=== PATIENT | female | born 1995 | race American Indian/Alaskan Native ===

== ENCOUNTER 2018-11-13 10:59 | Outpatient (CLI) | payer MEDICAID ==
[2018-11-13] MEDS ORDERED: LACTATED RINGERS 500 ML IV ONE (11:32)
[2018-11-13 12:23] LABS: Bacteria,Urine 1+ /HPF (Negative); Bilirubin,Urine NEG (Negative); Blood,Urine NEG (Negative); Color,Urine Yellow (Yellow); Mucus,Urine 1+ /HPF; Protein,Urine <15 mg/dL mg/dL (Negative); Urobilinogen,Urine < 2.0 mg/dL (<2.0)
[2018-11-13 13:37] VITALS: BP 125/76
[2018-11-13] MEDS ORDERED: LACTATED RINGERS 1,000 ML ONE (14:32)
== END 2018-11-13 16:53 | disposition home or self-care (01) ==
LOC: TRG 10:59 → LD 11:02 → TRG 12:47
PROVIDERS: ATTEND Obstetrics & Gynecology
DX: O26.892 Other specified pregnancy related conditions, second trimester (principal); R10.30 Lower abdominal pain, unspecified; O47.02 False labor before 37 completed weeks of gestation, second trimester; Z3A.25 25 weeks gestation of pregnancy
CPT/HCPCS: 81001; J7120

== ENCOUNTER 2019-02-05 22:53 | Inpatient (IN) | payer MEDICAID ==
[2019-02-05 23:41] LABS: Bacteria,Urine 1+ /HPF (Negative); Bilirubin,Urine NEG (Negative); Blood,Urine SM (Negative); Mucus,Urine FEW /HPF
[2019-02-05 23:44] LABS: Color,Urine YELLOW (Yellow)
[2019-02-06 00:08] LABS: Basophils % (Auto) 0.2 % (0.0-1.8); Eosinophils # (Auto) 0.4 K/mm3 (0.0-0.4); Eosinophils % (Auto) 2.8 % (0.0-4.3); Hematocrit 31.4 % (30.3-42.9); Hemoglobin 10.5 gm/dl (10.1-14.3); Lymphocytes # (Auto) 1.7 K/mm3 (1.2-5.4); Mean Corpuscular HGB Conc 34 % (30-34); Mean Corpuscular Volume 74 fl (79-97); Monocytes # (Auto) 1.2 K/mm3 (0.0-0.8); Monocytes % (Auto) 9.4 % (0.0-7.3); Red Blood Count 4.24 M/mm3 (3.65-5.03); Red Cell Distribution Width 17.3 % (13.2-15.2)
[2019-02-06 00:13] LABS: Platelet Count 92 K/mm3 (140-440)
[2019-02-06 00:34] LABS: BUN/Creatinine Ratio 18; Blood Urea Nitrogen 9 mg/dL (7-17)
[2019-02-06 00:35] LABS: Alanine Aminotransferase 45 units/L (7-56); Albumin 3.2 g/dL (3.9-5); Hemolysis Index 11
[2019-02-06] MEDS ORDERED: MAGNESIUM SULFATE 4GM/100ML 4 GM/100 ML BAG IV ONE (00:38)
[2019-02-06] MEDS ORDERED: APRESOLINE IV ONE (00:40)
--- NOTE | 2019-02-06 01:30 | Ultrasound Report ---
US OB limited INDICATION / CLINICAL INFORMATION: PRESENTATION. COMPARISON: 11/02/2018. FINDINGS: There is a single intrauterine in a cephalic presentation. Signer Name: Arden Brunner MD Signed: 02/06/2019 1:25 AM Workstation Name: [id number]
[2019-02-06] MEDS: LACTATED RINGERS 1,000 ML IV SCH ×2 (01:33→13:37)
[2019-02-06] MEDS: MAGNESIUM SULFATE 40GM/1000ML 40 GM/1,000 ML BAG IV SCH ×3 (02:28→19:15)
[2019-02-06] MEDS: SUBLIMAZE IV PRN ×2 (02:41→05:35)
[2019-02-06] MEDS ORDERED: CERVIDIL VG ONE (03:08)
[2019-02-06] MEDS ORDERED: NORMODYNE IV ONE (03:08)
[2019-02-06] MEDS ORDERED: APRESOLINE IV STA (05:19)
--- NOTE | 2019-02-06 05:37 | History and Physical Report ---
<MECHELLE MURILLO - Last Filed: 02/06/19 06:16> History of Present Illness Date of examination: 02/06/19 Date of admission: 02/06/19 00:56 History of present illness: EDC Confirmation: 02/23/2019 Gestational Age: 7 3/7 weeks Past History : 1 Term Births: 0 Premature Births: 0 Living Children: 0 Para: 0 Mult. Births: 0 Prev : 0 Prev. attempt? 0 Aborta: 0 Elect. Ab: 0 Spont. Ab: 0 Ectopics: 0 Past Medical History: Asthma Past Surgical History: [place] teeth removed Past Medical History Surgery (Non-nurse obgyn): [place] teeth removed Abnormal PAP: negative EKATERINA Exposure: negative Infertility: negative Uterine Anomaly: negative Uterine Surgery (not C/S): negative Other Gynecologic Problems: negative Infection History Hx of STD: gonorrhea HIV Risk Eval: low risk Hepatitis B Risk Eval: low risk Personal hx. of genital herpes: no Partner hx. of genital herpes: no Rash, Viral, or Febrile illness since last LMP? no Varicella/Chicken Pox Status: Previous Disease TB Risk: no Current Allergies (reviewed today): * IODINE (Critical) Past History - Obstetrical History Expected Date of Delivery: 02/23/19 Actual Gestation: 37 Week(s) 4 Day(s) : 1 Para: 0 Hx # Term Pregnancies: 0 Number of Pregnancies: 0 Spontaneous Abortions: 0 Induced : 0 Number of Living Children: 0 Medications and Allergies Allergies Allergy/AdvReac Type Severity Reaction Status Date / Time iodine Allergy Severe Anaphylaxis Verified 11/13/18 11:29 Active Meds: Active Medications Fentanyl (Sublimaze) 100 mcg IV Q2HR PRN PRN Reason: Pain , Severe (7-10) Last Admin: 02/06/19 02:41 Dose: 100 mcg Documented by: Magnesium Sulfate (Magnesium Sulfate 40gm/1000ml) 40 gm in 1,000 mls @ 50 mls/hr IV DIRECT DANAE Last Admin: 02/06/19 02:28 Dose: 2 gm/hr, 50 mls/hr Documented by: Lactated Ringer's (Lactated Ringers) 1,000 mls @ 75 mls/hr IV DIRECT DANAE Last Admin: 02/06/19 01:33 Dose: 75 mls/hr Documented by: Labetalol HCl (Normodyne) 200 mg PO BID DANAE - Vital Signs Vital signs: Vital Signs Pulse BP 88 185/104 02/05/19 23:13 02/05/19 23:13 Temp Pulse Resp BP Pulse Ox 99 H 183/96 100 02/06/19 05:31 02/06/19 05:31 02/06/19 05:29 - Physical Exam Breasts: Positive: deferred Cardiovascular: Normal S1, Normal S2, Other (tachycardia Pulse >100 ) Abdomen: Positive: normal appearance, soft, normal bowel sounds. Negative: distention, tenderness Vulva: both: normal Vagina: Positive: normal moisture. Negative: discharge Cervix: Negative: lesion, discharge Uterus: Positive: normal size, normal contour Adnexa: both: normal Anus/Rectum: Positive: normal perianal skin, heme negative. Negative: rectal mass, hemorrhoids Extremities: Positive: edema Deep Tendon Reflex Grade: Normal but brisk +3 - Obstetrical FHR: category 1 Uterine Contraction Monitor Mode: External Cervical Dilatation: 0 Cervical Effacement Percentage: 50 station: -2 Uterine Contraction Pattern: Irregular Uterine Tone Measurement Phase: Resting Uterine Contraction Intensity: Moderate Results Result Diagrams: 02/05/19 23:47 02/05/19 23:47 Abnormal lab results 02/05/19 02/05/19 Range/Units 23:47 23:47 WBC 12.5 H (4.5-11.0) K/mm3 MCV 74 L (79-97) fl MCH 25 L (28-32) pg RDW 17.3 H (13.2-15.2) % Plt Count 92 L (140-440) K/mm3 Adams % (Auto) 9.4 H (0.0-7.3) % Adams # 1.2 H (0.0-0.8) K/mm3 Seg Neutrophils % 73.6 H (40.0-70.0) % Seg Neutrophils # 9.2 H (1.8-7.7) K/mm3 Carbon Dioxide 19 L (22-30) mmol/L Creatinine 0.5 L (0.7-1.2) mg/dL AST 59 H (5-40) units/L Alkaline Phosphatase 160 H (35-129) units/L Albumin 3.2 L (3.9-5) g/dL All other labs normal. GBS Negative HBsAg Screen Negative Negative *1 RPR Non Reactive Non Reactive *2 Rubella Antibodies, IgG 3.77 index Immune >0.99 *3 Non-immune <0.90 Equivocal 0.90 - 0.99 Immune >0.99 ABO Grouping AB *4 Rh Factor Positive *5 Please note: Prior records for this patient's ABO / Rh type are not available for additional verification. Antibody Screen Negative Negative *6 WBC 10.2 x10E3/uL 3.4-10.8 *7 RBC 5.05 x10E6/uL 3.77-5.28 *8 Hemoglobin 12.5 g/dL 11.1-15.9 *9 Hematocrit 37.9 % 34.0-46.6 *10 MCV [L] 75 fL 79-97 *11 MCH [L] 24.8 pg 26.6-33.0 *12 MCHC 33.0 g/dL 31.5-35.7 *13 RDW [H] 16.0 % 12.3-15.4 *14 Platelets 251 x10E3/uL 150-379 *15 Neutrophils 70 % Not Estab. *16 Lymphs 22 % Not Estab. *17 Monocytes 5 % Not Estab. *18 Eos 3 % Not Estab. *19 Basos 0 % Not Estab. *20 ! Immature Cells <No Reported Value> *21 Neutrophils (Absolute) [H] 7.1 x10E3/uL 1.4-7.0 *22 Lymphs (Absolute) 2.2 x10E3/uL 0.7-3.1 *23 Monocytes(Absolute) 0.5 x10E3/uL 0.1-0.9 *24 Eos (Absolute) 0.3 x10E3/uL 0.0-0.4 *25 Baso (Absolute) 0.0 x10E3/uL 0.0-0.2 *26 ! Immature Granulocytes 0 % Not Estab. *27 ! Immature Grans (Abs) 0.0 x10E3/uL 0.0-0.1 *28 ! NRBC <No Reported Value> *29 Hematology Comments: <No Reported Value> *30 Tests: (2) Panel [id number] ([id number]) HIV Screen 4th Generation wRfx Non Reactive Non Reactive *31 Tests: (3) HCV Ab w/Rflx to Verification (319684) ! HCV Ab <0.1 s/co ratio 0.0-0.9 *32 Tests: (4) Comment: ([id number]) ! Comment: SPRCS *33 Non reactive HCV antibody screen is consistent with no HCV infection, unless recent infection is suspected or other evidence exists to indicate HCV infection. Tests: (5) Urine Culture, Routine ([id number]) Urine Culture, Routine Final report *34 Tests: (6) Result ([id number]) ! Result 1 MUG *35 Mixed urogenital lewis 25,000-50,000 colony forming units per mL Assessment and Plan 23yo @ 37 weeks with severe PreE Presented with back pain. MGSO4 IOL with Cervidil Pt is GBS negative All orders in EMR. Dr Ellison consulted - Patient Problems (1) 37 weeks gestation of Onset Date: ~02/06/19 Current Visit: Yes Status: Acute Plan to address problem: Pt has had intermittent elevated BPs in w/o dx of hypertension, PreE Today she presents with severe back pain, ANGEL, and exacerbation of asthma sx Now dx with severe PreE will move forward with IOL Cervidil to be placed Dr. Ellison consulted (2) Asthma Onset Date: ~02/06/19 Current Visit: Yes Status: Acute Qualifiers: Asthma severity: unspecified severity Asthma persistence: intermittent Qualified Code(s): J45.21 - Mild intermittent asthma with (acute) exacerbation Plan to address problem: Pt has her beside inhaler Breathing treatment ordered from respiratory (3) BMI 40.0-44.9, adult Onset Date: ~02/06/19 Current Visit: Yes Status: Acute Plan to address problem: Pt has had a 40 pound weight gain this (4) Gestational diabetes mellitus, diet-controlled Onset Date: ~02/06/19 Current Visit: Yes Status: Acute Qualifiers: Trimester: third trimester Qualified Code(s): O24.410 - Gestational diabetes mellitus in , diet controlled Plan to address problem: Pt has been controlling her GDM with diet BS POC ordered (5) Yeast infection of the vagina Onset Date: ~02/06/19 Current Visit: Yes Status: Acute Plan to address problem: Pt has had chronic issue with VVC throughout Pt is aware that a high sugar/starch diet can contribute to this She has been treated several times in the (6) Pre-eclampsia in third trimester Onset Date: ~02/06/19 Current Visit: Yes Status: Acute Plan to address problem: Pt presented tonight with c/o severe back pain Labs: H&H 10.5/31.4 Plt 92 AST/ALT 59(H)/45 Creatinine 0.5(L) Urine protein >100 BP: 180/100 to 160/90 MGSO4 started Labetalol IV 20mg Apresoline 10mg IV Labetalol 200mg po BID <QUINN ELLISON D - Last Filed: 02/06/19 07:41> History of Present Illness Date of admission: 02/06/19 00:56 Chief complaint: severe back pain History of present illness: Patient presented c/o back pain, her evaluation revealed elevated BP's and LFT as well and slightly low platelets. She admitted now for IOL d/t Preeclampsia/HELLP syndrome Medications and Allergies Active Meds: Active Medications Fentanyl (Sublimaze) 100 mcg IV Q2HR PRN PRN Reason: Pain , Severe (7-10) Last Admin: 02/06/19 05:35 Dose: 100 mcg Documented by: Magnesium Sulfate (Magnesium Sulfate 40gm/1000ml) 40 gm in 1,000 mls @ 50 mls/hr IV DIRECT DANAE Last Admin: 02/06/19 02:28 Dose: 2 gm/hr, 50 mls/hr Documented by: Lactated Ringer's (Lactated Ringers) 1,000 mls @ 75 mls/hr IV DIRECT DANAE Last Admin: 02/06/19 01:33 Dose: 75 mls/hr Documented by: Labetalol HCl (Normodyne) 200 mg PO BID DANAE Review of Systems All systems: negative - Vital Signs Vital signs: Vital Signs Pulse BP 88 185/104 02/05/19 23:13 02/05/19 23:13 Temp Pulse Resp BP Pulse Ox 124 H 144/84 95 02/06/19 07:29 02/06/19 07:04 02/06/19 07:29 - Physical Exam Abdomen: Positive: other (obese) Uterus: Positive: enlarged, normal contour. Negative: tender Results Result Diagrams: 02/05/19 23:47 02/05/19 23:47 Abnormal lab results 02/05/19 02/05/19 Range/Units 23:47 23:47 WBC 12.5 H (4.5-11.0) K/mm3 MCV 74 L (79-97) fl MCH 25 L (28-32) pg RDW 17.3 H (13.2-15.2) % Plt Count 92 L (140-440) K/mm3 Adams % (Auto) 9.4 H (0.0-7.3) % Adams # 1.2 H (0.0-0.8) K/mm3 Seg Neutrophils % 73.6 H (40.0-70.0) % Seg Neutrophils # 9.2 H (1.8-7.7) K/mm3 Carbon Dioxide 19 L (22-30) mmol/L Creatinine 0.5 L (0.7-1.2) mg/dL AST 59 H (5-40) units/L Alkaline Phosphatase 160 H (35-129) units/L Albumin 3.2 L (3.9-5) g/dL All other labs normal. Ultrasound: report reviewed Assessment and Plan - Patient Problems (1) HELLP syndrome in third trimester Current Visit: Yes Status: Acute Plan to address problem: After patient gave consent to discuss her care with visitor present, diagnosis and indication for delivery discussed. She was informed of preeclampsia, low platelets, elevated BP's and concern for stroke or seizure. Indications for c/s delivery addressed. Explained cervidil to remain for 12hours and then ? pitocin. Questions were encourage and answered, she and visitor voiced understanding and agree with plan of care (2) 37 weeks gestation of Onset Date: ~02/06/19 Current Visit: Yes Status: Acute (3) Asthma Onset Date: ~02/06/19 Current Visit: Yes Status: Acute Qualifiers: Asthma severity: unspecified severity Asthma persistence: intermittent Qualified Code(s): J45.21 - Mild intermittent asthma with (acute) exacerbation (4) BMI 40.0-44.9, adult Onset Date: ~02/06/19 Current Visit: Yes Status: Acute (5) Gestational diabetes mellitus, diet-controlled Onset Date: ~02/06/19 Current Visit: Yes Status: Acute Qualifiers: Trimester: third trimester Qualified Code(s): O24.410 - Gestational diabetes mellitus in , diet controlled (6) Pre-eclampsia in third trimester Onset Date: ~02/06/19 Current Visit: Yes Status: Acute
[2019-02-06] MEDS ORDERED: DUONEB *Not for PRN Use IH ONE (08:41)
[2019-02-06] MEDS: NORMODYNE PO SCH ×2 (10:02→22:02)
[2019-02-06] MEDS ORDERED: PROVENTIL IH PRN (11:00)
[2019-02-06] MEDS ORDERED: SUBLIMAZE IV ONE (13:04)
--- NOTE | 2019-02-06 13:10 | Progress Note ---
Assessment and Plan Pt states her ANGEL is much better than when RN called Tylenol ordered. Pt states all of her pain is in her back Will order Fentanyl 100 X 1 dose. Consulted with . Continue POC Will re-eval prn - Patient Problems (1) 37 weeks gestation of Onset Date: ~02/06/19 Current Visit: Yes Status: Acute (2) Asthma Onset Date: ~02/06/19 Current Visit: Yes Status: Acute Qualifiers: Asthma severity: unspecified severity Asthma persistence: intermittent Qualified Code(s): J45.21 - Mild intermittent asthma with (acute) exacerbation (3) BMI 40.0-44.9, adult Onset Date: ~02/06/19 Current Visit: Yes Status: Acute (4) Gestational diabetes mellitus, diet-controlled Onset Date: ~02/06/19 Current Visit: Yes Status: Acute Qualifiers: Trimester: third trimester Qualified Code(s): O24.410 - Gestational diabetes mellitus in , diet controlled (5) Yeast infection of the vagina Onset Date: ~02/06/19 Current Visit: Yes Status: Acute (6) Pre-eclampsia in third trimester Onset Date: ~02/06/19 Current Visit: Yes Status: Acute Subjective - Subjective Date of service: 02/06/19 (asking for pain meds) Principal diagnosis: IUP @ 37w with severe PreE;GDM;Asthma Interval history: EDC Confirmation: 02/23/2019 Gestational Age: 7 3/7 weeks Past History : 1 Term Births: 0 Premature Births: 0 Living Children: 0 Para: 0 Mult. Births: 0 Prev : 0 Prev. attempt? 0 Aborta: 0 Elect. Ab: 0 Spont. 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 of genital herpes: no Partner hx. of genital herpes: no Rash, Viral, or Febrile illness since last LMP? no Varicella/Chicken Pox Status: Previous Disease TB Risk: no Current Allergies (reviewed today): * IODINE (Critical) Patient reports: movement normal, contractions Objective - Vital Signs Vital Signs: Vital Signs - 12hr 02/06/19 02/06/19 02/06/19 02:29 02:30 02:34 Pulse Rate 97 H 98 H 102 H Pulse Rate [ Bilateral] Respiratory Rate [Bilateral ] Blood Pressure 167/85 O2 Sat by Pulse 98 99 Oximetry 02/06/19 02/06/19 02/06/19 02:35 02:39 02:44 Pulse Rate 99 H 101 H 96 H Pulse Rate [ Bilateral] Respiratory Rate [Bilateral ] Blood Pressure 162/86 O2 Sat by Pulse 99 98 Oximetry 02/06/19 02/06/19 02/06/19 02:49 02:54 02:59 Pulse Rate 101 H 103 H 104 H Pulse Rate [ Bilateral] Respiratory Rate [Bilateral ] Blood Pressure O2 Sat by Pulse 97 97 97 Oximetry 02/06/19 02/06/19 02/06/19 03:04 03:09 03:11 Pulse Rate 102 H 102 H 103 H Pulse Rate [ Bilateral] Respiratory Rate [Bilateral ] Blood Pressure 179/90 O2 Sat by Pulse 97 97 Oximetry 02/06/19 02/06/19 02/06/19 03:14 03:19 03:24 Pulse Rate 101 H 106 H 109 H Pulse Rate [ Bilateral] Respiratory Rate [Bilateral ] Blood Pressure O2 Sat by Pulse 99 98 98 Oximetry 02/06/19 02/06/19 02/06/19 03:29 03:34 03:39 Pulse Rate 110 H 100 H 102 H Pulse Rate [ Bilateral] Respiratory Rate [Bilateral ] Blood Pressure O2 Sat by Pulse 99 99 98 Oximetry 02/06/19 02/06/19 02/06/19 03:40 03:44 03:49 Pulse Rate 103 H 109 H 108 H Pulse Rate [ Bilateral] Respiratory Rate [Bilateral ] Blood Pressure 181/97 O2 Sat by Pulse 98 98 Oximetry 02/06/19 02/06/19 02/06/19 03:54 03:59 04:04 Pulse Rate 104 H 107 H 104 H Pulse Rate [ Bilateral] Respiratory Rate [Bilateral ] Blood Pressure O2 Sat by Pulse 99 99 97 Oximetry 02/06/19 02/06/19 02/06/19 04:09 04:11 04:14 Pulse Rate 107 H 105 H 114 H Pulse Rate [ Bilateral] Respiratory Rate [Bilateral ] Blood Pressure 188/97 O2 Sat by Pulse 98 99 Oximetry 02/06/19 02/06/19 02/06/19 04:19 04:24 04:28 Pulse Rate 104 H 99 H 102 H Pulse Rate [ Bilateral] Respiratory Rate [Bilateral ] Blood Pressure 176/91 O2 Sat by Pulse 99 98 Oximetry 02/06/19 02/06/19 02/06/19 04:29 04:34 04:39 Pulse Rate 99 H 108 H 102 H Pulse Rate [ Bilateral] Respiratory Rate [Bilateral ] Blood Pressure O2 Sat by Pulse 98 99 98 Oximetry 02/06/19 02/06/19 02/06/19 04:44 04:49 04:54 Pulse Rate 102 H 102 H 102 H Pulse Rate [ Bilateral] Respiratory Rate [Bilateral ] Blood Pressure O2 Sat by Pulse 98 98 97 Oximetry 02/06/19 02/06/19 02/06/19 04:58 04:59 05:04 Pulse Rate 107 H 113 H 99 H Pulse Rate [ Bilateral] Respiratory Rate [Bilateral ] Blood Pressure 175/102 O2 Sat by Pulse 98 97 Oximetry 02/06/19 02/06/19 02/06/19 05:09 05:14 05:19 Pulse Rate 100 H 96 H 107 H Pulse Rate [ Bilateral] Respiratory Rate [Bilateral ] Blood Pressure O2 Sat by Pulse 97 97 98 Oximetry 02/06/19 02/06/19 02/06/19 05:24 05:29 05:31 Pulse Rate 105 H 107 H 99 H Pulse Rate [ Bilateral] Respiratory Rate [Bilateral ] Blood Pressure 187/99 183/96 O2 Sat by Pulse 99 100 Oximetry 02/06/19 02/06/19 02/06/19 05:34 05:39 05:44 Pulse Rate 114 H 110 H 107 H Pulse Rate [ Bilateral] Respiratory Rate [Bilateral ] Blood Pressure 152/72 O2 Sat by Pulse 99 99 96 Oximetry 02/06/19 02/06/19 02/06/19 05:49 05:54 06:09 Pulse Rate 105 H 105 H 117 H Pulse Rate [ Bilateral] Respiratory Rate [Bilateral ] Blood Pressure O2 Sat by Pulse 95 96 97 Oximetry 02/06/19 02/06/19 02/06/19 06:10 06:14 06:19 Pulse Rate 113 H 109 H 114 H Pulse Rate [ Bilateral] Respiratory Rate [Bilateral ] Blood Pressure 154/78 O2 Sat by Pulse 97 98 Oximetry 02/06/19 02/06/19 02/06/19 06:24 06:29 06:32 Pulse Rate 115 H 117 H 107 H Pulse Rate [ Bilateral] Respiratory Rate [Bilateral ] Blood Pressure 174/81 O2 Sat by Pulse 97 98 Oximetry 02/06/19 02/06/19 02/06/19 06:34 06:39 06:44 Pulse Rate 110 H 107 H 111 H Pulse Rate [ Bilateral] Respiratory Rate [Bilateral ] Blood Pressure O2 Sat by Pulse 97 97 97 Oximetry 02/06/19 02/06/19 02/06/19 06:49 06:54 06:59 Pulse Rate 110 H 107 H 111 H Pulse Rate [ Bilateral] Respiratory Rate [Bilateral ] Blood Pressure O2 Sat by Pulse 96 96 96 Oximetry 02/06/19 02/06/19 02/06/19 07:04 07:09 07:10 Pulse Rate 106 H 109 H 111 H Pulse Rate [ Bilateral] Respiratory Rate [Bilateral ] Blood Pressure 144/84 O2 Sat by Pulse 96 95 94 Oximetry 02/06/19 02/06/19 02/06/19 07:14 07:19 07:24 Pulse Rate 118 H 115 H 109 H Pulse Rate [ Bilateral] Respiratory Rate [Bilateral ] Blood Pressure O2 Sat by Pulse 96 95 96 Oximetry 02/06/19 02/06/19 02/06/19 07:29 07:32 07:34 Pulse Rate 124 H 120 H 115 H Pulse Rate [ Bilateral] Respiratory Rate [Bilateral ] Blood Pressure 173/77 O2 Sat by Pulse 95 95 Oximetry 02/06/19 02/06/19 02/06/19 07:39 07:44 07:49 Pulse Rate 116 H 110 H 109 H Pulse Rate [ Bilateral] Respiratory Rate [Bilateral ] Blood Pressure O2 Sat by Pulse 95 95 95 Oximetry 02/06/19 02/06/19 02/06/19 07:54 07:56 07:59 Pulse Rate 113 H 114 H 113 H Pulse Rate [ Bilateral] Respiratory Rate [Bilateral ] Blood Pressure O2 Sat by Pulse 95 94 95 Oximetry 02/06/19 02/06/19 02/06/19 08:01 08:04 08:07 Pulse Rate 116 H 113 H 111 H Pulse Rate [ Bilateral] Respiratory Rate [Bilateral ] Blood Pressure 138/72 O2 Sat by Pulse 94 95 94 Oximetry 02/06/19 02/06/19 02/06/19 08:09 08:14 08:19 Pulse Rate 116 H 112 H 112 H Pulse Rate [ Bilateral] Respiratory Rate [Bilateral ] Blood Pressure O2 Sat by Pulse 95 95 96 Oximetry 02/06/19 02/06/19 02/06/19 08:24 08:29 08:31 Pulse Rate 114 H 120 H 113 H Pulse Rate [ Bilateral] Respiratory Rate [Bilateral ] Blood Pressure 141/75 O2 Sat by Pulse 96 98 Oximetry 02/06/19 02/06/19 02/06/19 08:33 08:34 08:39 Pulse Rate 117 H 121 H 114 H Pulse Rate [ Bilateral] Respiratory Rate [Bilateral ] Blood Pressure O2 Sat by Pulse 94 96 97 Oximetry 02/06/19 02/06/19 02/06/19 08:44 08:47 08:49 Pulse Rate 119 H 109 H Pulse Rate [ 113 H Bilateral] Respiratory 17 Rate [Bilateral ] Blood Pressure O2 Sat by Pulse 97 98 Oximetry 02/06/19 02/06/19 02/06/19 08:54 08:59 09:01 Pulse Rate 111 H 125 H 120 H Pulse Rate [ Bilateral] Respiratory Rate [Bilateral ] Blood Pressure 125/81 O2 Sat by Pulse 97 96 Oximetry 02/06/19 02/06/19 02/06/19 09:04 09:09 09:14 Pulse Rate 118 H 116 H 113 H Pulse Rate [ Bilateral] Respiratory Rate [Bilateral ] Blood Pressure O2 Sat by Pulse 97 96 95 Oximetry 02/06/19 02/06/19 02/06/19 09:18 09:19 09:24 Pulse Rate 115 H 119 H 117 H Pulse Rate [ Bilateral] Respiratory Rate [Bilateral ] Blood Pressure 124/73 O2 Sat by Pulse 96 95 Oximetry 02/06/19 02/06/19 02/06/19 09:29 09:32 09:34 Pulse Rate 117 H 116 H 114 H Pulse Rate [ Bilateral] Respiratory Rate [Bilateral ] Blood Pressure 142/82 O2 Sat by Pulse 96 96 Oximetry 02/06/19 02/06/19 02/06/19 09:39 09:41 09:44 Pulse Rate 105 H 128 H 119 H Pulse Rate [ Bilateral] Respiratory Rate [Bilateral ] Blood Pressure O2 Sat by Pulse 97 94 96 Oximetry 02/06/19 02/06/19 02/06/19 09:49 09:54 09:59 Pulse Rate 116 H 114 H 112 H Pulse Rate [ Bilateral] Respiratory Rate [Bilateral ] Blood Pressure O2 Sat by Pulse 97 97 97 Oximetry 02/06/19 02/06/19 02/06/19 10:01 10:02 10:04 Pulse Rate 114 H 112 H 116 H Pulse Rate [ Bilateral] Respiratory Rate [Bilateral ] Blood Pressure 142/80 142/80 O2 Sat by Pulse 97 Oximetry 02/06/19 02/06/19 02/06/19 10:09 10:14 10:19 Pulse Rate 114 H 115 H 110 H Pulse Rate [ Bilateral] Respiratory Rate [Bilateral ] Blood Pressure O2 Sat by Pulse 97 97 96 Oximetry 02/06/19 02/06/19 02/06/19 10:24 10:29 10:30 Pulse Rate 110 H 111 H 109 H Pulse Rate [ Bilateral] Respiratory Rate [Bilateral ] Blood Pressure O2 Sat by Pulse 95 96 94 Oximetry 02/06/19 02/06/19 02/06/19 10:33 10:34 10:39 Pulse Rate 105 H 113 H 110 H Pulse Rate [ Bilateral] Respiratory Rate [Bilateral ] Blood Pressure 141/72 O2 Sat by Pulse 96 95 Oximetry 02/06/19 02/06/19 02/06/19 10:44 10:46 10:49 Pulse Rate 111 H 113 H 110 H Pulse Rate [ Bilateral] Respiratory Rate [Bilateral ] Blood Pressure O2 Sat by Pulse 95 94 95 Oximetry 02/06/19 02/06/19 02/06/19 10:52 10:54 10:59 Pulse Rate 111 H 111 H 108 H Pulse Rate [ Bilateral] Respiratory Rate [Bilateral ] Blood Pressure O2 Sat by Pulse 93 95 96 Oximetry 02/06/19 02/06/19 02/06/19 11:00 11:01 11:04 Pulse Rate 109 H 110 H 110 H Pulse Rate [ Bilateral] Respiratory Rate [Bilateral ] Blood Pressure 137/81 O2 Sat by Pulse 94 96 Oximetry 02/06/19 02/06/19 02/06/19 11:06 11:09 11:12 Pulse Rate 106 H 109 H 108 H Pulse Rate [ Bilateral] Respiratory Rate [Bilateral ] Blood Pressure O2 Sat by Pulse 94 95 93 Oximetry 02/06/19 02/06/19 02/06/19 11:14 11:19 11:21 Pulse Rate 112 H 109 H 106 H Pulse Rate [ Bilateral] Respiratory Rate [Bilateral ] Blood Pressure O2 Sat by Pulse 94 95 93 Oximetry 02/06/19 02/06/19 02/06/19 11:24 11:29 11:34 Pulse Rate 117 H 111 H 109 H Pulse Rate [ Bilateral] Respiratory Rate [Bilateral ] Blood Pressure O2 Sat by Pulse 97 96 96 Oximetry 02/06/19 02/06/19 02/06/19 11:39 11:42 11:44 Pulse Rate 110 H 112 H 108 H Pulse Rate [ Bilateral] Respiratory Rate [Bilateral ] Blood Pressure O2 Sat by Pulse 96 94 96 Oximetry 02/06/19 02/06/19 02/06/19 11:49 11:54 11:59 Pulse Rate 109 H 107 H 105 H Pulse Rate [ Bilateral] Respiratory Rate [Bilateral ] Blood Pressure O2 Sat by Pulse 96 96 96 Oximetry 02/06/19 02/06/19 02/06/19 12:00 12:01 12:04 Pulse Rate 109 H 109 H 107 H Pulse Rate [ Bilateral] Respiratory Rate [Bilateral ] Blood Pressure 143/77 O2 Sat by Pulse 92 96 Oximetry 02/06/19 02/06/19 02/06/19 12:09 12:14 12:19 Pulse Rate 108 H 106 H 114 H Pulse Rate [ Bilateral] Respiratory Rate [Bilateral ] Blood Pressure O2 Sat by Pulse 97 96 96 Oximetry 02/06/19 02/06/19 02/06/19 12:24 12:26 12:29 Pulse Rate 105 H 106 H 101 H Pulse Rate [ Bilateral] Respiratory Rate [Bilateral ] Blood Pressure O2 Sat by Pulse 96 94 94 Oximetry 02/06/19 02/06/19 02/06/19 12:32 12:34 12:37 Pulse Rate 112 H 104 H 107 H Pulse Rate [ Bilateral] Respiratory Rate [Bilateral ] Blood Pressure 122/72 O2 Sat by Pulse 96 94 Oximetry 02/06/19 02/06/19 02/06/19 12:39 12:44 12:49 Pulse Rate 111 H 105 H 105 H Pulse Rate [ Bilateral] Respiratory Rate [Bilateral ] Blood Pressure O2 Sat by Pulse 94 95 97 Oximetry 02/06/19 02/06/19 02/06/19 12:54 12:59 13:02 Pulse Rate 112 H 109 H 108 H Pulse Rate [ Bilateral] Respiratory Rate [Bilateral ] Blood Pressure 130/77 O2 Sat by Pulse 96 97 Oximetry 02/06/19 13:04 Pulse Rate 106 H Pulse Rate [ Bilateral] Respiratory Rate [Bilateral ] Blood Pressure O2 Sat by Pulse 97 Oximetry - Exam Breasts: deferred Cardiovascular: Regular rate Lungs: Other (bilateral wheezing persists; Pt states her breathing effort is much better) Abdomen: Present: normal appearance, soft. Absent: distention, tenderness Vulva: both: normal (white curds noted inside labia and on vulva) Uterus: Present: normal FHR: auscultation normal, category 1 Uterine Contraction Monitor Mode: External Cervical Dilatation: 0 (Cervidil remains in place) Cervical Effacement Percentage: 50 station: -3 Uterine Contraction Frequency (min): q1-3 Uterine Contraction Duration: 30-40 Uterine Contraction Pattern: Regular Uterine Tone Measurement Phase: Resting Uterine Contraction Intensity: Moderate Extremities: edema Deep Tendon Reflex Grade: Normal but brisk +3 - Labs Labs: Abnormal Labs 02/05/19 02/05/19 02/06/19 23:47 23:47 06:58 WBC 12.5 H MCV 74 L MCH 25 L RDW 17.3 H Plt Count 92 L Forest % (Auto) 9.4 H Forest # 1.2 H Seg Neutrophils % 73.6 H Seg Neutrophils # 9.2 H Carbon Dioxide 19 L Creatinine 0.5 L Magnesium 3.20 H AST 59 H Alkaline Phosphatase 160 H Albumin 3.2 L Laboratory Results - last 24 hr 02/05/19 02/05/19 02/05/19 23:15 23:47 23:47 WBC 12.5 H RBC 4.24 Hgb 10.5 Hct 31.4 MCV 74 L MCH 25 L MCHC 34 RDW 17.3 H Plt Count 92 L Lymph % (Auto) 14.0 Forest % (Auto) 9.4 H Eos % (Auto) 2.8 Baso % (Auto) 0.2 Lymph # 1.7 Forest # 1.2 H Eos # 0.4 Baso # 0.0 Seg Neutrophils % 73.6 H Seg Neutrophils # 9.2 H Sodium 137 Potassium 4.0 Chloride 104.1 Carbon Dioxide 19 L Anion Gap 18 BUN 9 Creatinine 0.5 L Estimated GFR > 60 BUN/Creatinine Ratio 18 Glucose 82 POC Glucose Calcium 9.0 Magnesium Total Bilirubin 0.40 AST 59 H ALT 45 Alkaline Phosphatase 160 H Total Protein 6.5 Albumin 3.2 L Albumin/Globulin Ratio 1.0 Urine Color Yellow Urine Turbidity Clear Urine pH 6.0 Ur Specific Foster 1.019 Urine Protein 100 mg/dl Urine Glucose (UA) Neg Urine Ketones Neg Urine Blood Sm Urine Nitrite Neg Urine Bilirubin Neg Urine Urobilinogen 2.0 Ur Leukocyte Esterase Lg Urine WBC (Auto) 4.0 Urine RBC (Auto) 2.0 U Epithel Cells (Auto) 3.0 Urine Bacteria (Auto) 1+ Urine Mucus Few RPR Blood Type Antibody Screen 02/06/19 02/06/19 02/06/19 01:33 06:26 06:58 WBC RBC Hgb Hct MCV MCH MCHC RDW Plt Count Lymph % (Auto) Forest % (Auto) Eos % (Auto) Baso % (Auto) Lymph # Forest # Eos # Baso # Seg Neutrophils % Seg Neutrophils # Sodium Potassium Chloride Carbon Dioxide Anion Gap BUN Creatinine Estimated GFR BUN/Creatinine Ratio Glucose POC Glucose 76 Calcium Magnesium 3.20 H Total Bilirubin AST ALT Alkaline Phosphatase Total Protein Albumin Albumin/Globulin Ratio Urine Color Urine Turbidity Urine pH Ur Specific Foster Urine Protein Urine Glucose (UA) Urine Ketones Urine Blood Urine Nitrite Urine Bilirubin Urine Urobilinogen Ur Leukocyte Esterase Urine WBC (Auto) Urine RBC (Auto) U Epithel Cells (Auto) Urine Bacteria (Auto) Urine Mucus RPR Nonreactive Blood Type Antibody Screen 02/06/19 Unknown WBC RBC Hgb Hct MCV MCH MCHC RDW Plt Count Lymph % (Auto) Forest % (Auto) Eos % (Auto) Baso % (Auto) Lymph # Forest # Eos # Baso # Seg Neutrophils % Seg Neutrophils # Sodium Potassium Chloride Carbon Dioxide Anion Gap BUN Creatinine Estimated GFR BUN/Creatinine Ratio Glucose POC Glucose Calcium Magnesium Total Bilirubin AST ALT Alkaline Phosphatase Total Protein Albumin Albumin/Globulin Ratio Urine Color Urine Turbidity Urine pH Ur Specific Foster Urine Protein Urine Glucose (UA) Urine Ketones Urine Blood Urine Nitrite Urine Bilirubin Urine Urobilinogen Ur Leukocyte Esterase Urine WBC (Auto) Urine RBC (Auto) U Epithel Cells (Auto) Urine Bacteria (Auto) Urine Mucus RPR Blood Type AB POSITIVE Antibody Screen Negative
[2019-02-06 13:25] LABS: Hematocrit 31.9 % (30.3-42.9); Hemoglobin 10.6 gm/dl (10.1-14.3); Mean Corpuscular HGB Conc 33 % (30-34); Mean Corpuscular Volume 75 fl (79-97); Platelet Count 70 K/mm3 (140-440); Red Blood Count 4.25 M/mm3 (3.65-5.03); Red Cell Distribution Width 17.7 % (13.2-15.2)
[2019-02-06] MEDS: DUONEB *Not for PRN Use IH SCH ×2 (13:31→13:39)
[2019-02-06 13:38] LABS: INR 1.04 (0.87-1.13)
[2019-02-06] MEDS ORDERED: TYLENOL PO PRN ×2 (14:00→18:25)
[2019-02-06] MEDS ORDERED: VERSED IV ONE (14:10)
[2019-02-06] MEDS ORDERED: SUBLIMAZE ONE (14:10)
[2019-02-06 14:12] LABS: Uric Acid 5.6 mg/dL (3.5-7.6)
[2019-02-06] MEDS ORDERED: ANCEF ONE ×2 (14:14→18:03)
[2019-02-06] MEDS ORDERED: DIPRIVAN 10 MG/ML IV ONE (14:14)
[2019-02-06] MEDS ORDERED: QUELICIN ONE (14:14)
[2019-02-06] MEDS ORDERED: NEO SYNEPHRINE ONE (14:57)
[2019-02-06] MEDS ORDERED: DILAUDID ONE ×2 (14:58→18:03)
[2019-02-06] MEDS ORDERED: XYLOCAINE MPF 2% ONE (15:00)
[2019-02-06] MEDS ORDERED: PEPCID IV ONE (15:52)
[2019-02-06] MEDS ORDERED: BICITRA PO ONE (15:52)
[2019-02-06] MEDS ORDERED: REGLAN IV ONE (15:52)
[2019-02-06] MEDS ORDERED: LACTATED RINGERS 1,000 ML IV SCH ×2 (16:00→19:00)
[2019-02-06] MEDS ORDERED: PITOCin/NS 20 UNIT/1000ML DRIP 20 UNITS/1,000 ML BAG IV SCH ×2 (16:00→19:00)
--- NOTE | 2019-02-06 16:07 | Event Note ---
Date: 02/06/19 (worsening of labs) Re-evaluation of labs shows worsening platelet count now 70 and AST 85 Pt continues to cry with pain and c/o headache Reported increase in labs to Dr.Royster Coyle pt for c/s Spoke with pt via phone She verbally voiced understanding.
--- NOTE | 2019-02-06 16:12 | Anesthesia Consultation ---
Anesthesia Consult and Med Hx Date of service: 02/06/19 - Airway Anesthetic Teeth Evaluation: Good ROM Head & Neck: Adequate Mental/Hyoid Distance: Adequate Mallampati Class: Class II Intubation Access Assessment: Good - Pulmonary Exam CTA: Yes - Cardiac Exam Cardiac Exam: RRR - Pre-Operative Health Status ASA Pre-Surgery Classification: ASA3, Emergency Proposed Anesthetic Plan: Spinal - Pulmonary Hx Asthma: Yes (last attack in 09/04 pt on Albuterol and Breo Ellipta) - Cardiovascular System Hx Hypertension: Yes (PIH, preE, HELP syndrom) - Central Nervous System Hx Seizures: No Hx Psychiatric Problems: No - Endocrine Hx Renal Disease: No Hx Hypothyroidism: No Hx Hyperthyroidism: No - Hematic Hx Anemia: No Hx Sickle Cell Disease: No - Other Systems Hx Alcohol Use: No
--- NOTE | 2019-02-06 16:13 | Anesthesia Day of Surgery ---
Anesthesia Day of Surgery - Day of Surgery Patient Examined: Yes Patient H&P Reviewed: Yes Patient is NPO: Yes Beta Blockers: Yes
[2019-02-06] MEDS ORDERED: DEXMEDETOMIDINE IV ONE (16:20)
[2019-02-06] MEDS ORDERED: ZOFRAN ONE (16:27)
[2019-02-06] MEDS ORDERED: NACL 0.9% 500 ML 500 ML IV NR (16:29)
--- NOTE | 2019-02-06 16:57 | Event Note ---
Date: 02/06/19 Labs reviewed. With symptoms and worsening labs and remote from delivery recommend proceeding with c/s for delivery. Risks of c/s explained vs continued IOL. Questions encouraged and answered. Consent reveiwed and signed. She voiced understanding and desires to proceed with delivery.
[2019-02-06] MEDS ORDERED: NACL 0.9% IR ONE (17:45)
[2019-02-06] MEDS ORDERED: WATER FOR IRRIG STERILE IR ONE (17:45)
[2019-02-06] MEDS ORDERED: BENADRYL ONE (18:03)
[2019-02-06] MEDS ORDERED: NARCAN 0.4 MG/1 ML IV PRN (18:25)
[2019-02-06] MEDS ORDERED: MORPHINE IV PRN (18:25)
[2019-02-06] MEDS ORDERED: TUCKS PAD TP PRN (18:25)
[2019-02-06] MEDS ORDERED: MYLICON PO PRN (18:25)
[2019-02-06] MEDS ORDERED: LANSINOH TP PRN (18:25)
[2019-02-06] MEDS ORDERED: ZOFRAN IV PRN (18:25)
[2019-02-06] MEDS ORDERED: MILK OF MAGNESIA PO PRN (18:25)
--- NOTE | 2019-02-06 18:59 | Operative Report ---
Operative Report Operative Report: Date: 02/06/2019 Preoperative diagnosis: 1. Intrauterine at 37 weeks 2. Worsening Preeclampsia with severe features: Elevated liver function test, thrombocytopenia, headache 3. Remote from delivery 4. BMI 41 Postoperative diagnosis: 1. Intrauterine at 37 weeks 2. Worsening Preeclampsia with severe features: Elevated liver function test, thrombocytopenia, headache 3. Remote from delivery 4. BMI 41 Procedure: Low uterine transverse incision for delivery Surgeon: Rosario Ellison MD Handling Tech: Kassandra Aguilar CST Anesthesia: Spinal Anesthesiologist: Dwight Rousseau M.D. Estimated blood loss: 700 mL Urine out: 100 mL Findings: Live born male . Weight 7 lbs. 6 oz. Apgars 8 at 1 minute and 9 at 5 minutes. Uterus grossly normal, tubes grossly normal, ovaries grossly normal. Procedure: After risk, benefits, complications, consequences and alternatives for this procedure were discussed with patient and consents were reviewed and signed, she was taken to the OR where spinal anesthesia was placed. She was then placed in the left lateral tilt position, and prepped and draped in the usual sterile fashion. Timeout was performed, and an appropriate level of anesthesia was noted, a Pfannenstiel incision was made and extended to the fascia which was incised and extended in the lateral directions. The overlying fascia was sharply dissected away from the underlying rectus muscles in the superior and inferior directions. The midline was entered bluntly. The large Jarrod retractor was placed. The vesicouterine fold was incised and with blunt dissection the bladder flap was created. A transverse incision was made in the lower uterine segment and extended in superiolateral direction with finger fractionation. Copious clear fluid was noted. The was delivered from cephalic ROT position. Mouth and nose were bulb suctioned. Spontaneous cry and excellent tone were noted. Cord was doubly clamped and cut. The was given to /resuscitation team present. The placenta was manually extracted. The uterus was then exteriorized and cleared of any further products of conception or placental tissue. The incision was reapproximated using 0 Vicryl in a running interlocking stitch. The incision was further reinforced with 0 Vicryl suture in an imbricating fashion. Grossly normal uterus, tubes and ovaries were noted. Once hemostasis was noted, the uterus was allowed back into the pelvic cavity. The pelvis was irrigated with warm normal saline. Again hemostasis was noted . Tisseel applied for further hemostasis. Interceed was then placed to prevent adhesions. Then attention was turned to the rectus muscles. The rectus muscles reapproximated using 0 Vicryl in a simple interrupted stitch x 4. Once hemostasis was noted, the fascia was reapproximated using 0 Vicryl running stitch fashion. Once hemostasis was noted skin incision was reapproximated using 4-0 Vicryl on a Jh needle in a subcuticular manner. Counts were correct 3. Patient tolerated procedure well state recovery room in stable condition.
[2019-02-06] MEDS ORDERED: SODIUM CHLORIDE FLUSH SYRINGE 10 ML IV SCH (19:00)
--- NOTE | 2019-02-06 19:32 | Post Anesthesia Evaluation ---
- Post Anesthesia Evaluation Patient Participated: Yes Airway Patent: Yes Stable Respiratory Function: Yes Nausea/Vomiting: No Temp > 96.8F: Yes Pain Manageable: Yes Adequeate Hydration: Yes Anesthesia Complications: No Block Receding Appropriately: Yes Patient on Ventilator: No
[2019-02-06] MEDS ORDERED: PULMICORT IH SCH (20:00)
[2019-02-06] MEDS ORDERED: BROVANA NEBU IH SCH (20:00)
[2019-02-06] MEDS: MORPHINE IV PRN (21:01)
--- NOTE | 2019-02-06 22:15 | Event Note ---
Date: 02/06/19 Resting in bed, no complaints, family present. Questions answered, UO 600mL since delivery. BP noted, rechk at 2230.
[2019-02-06] MEDS: ANCEF/NS 1 GM/50 ML 1 GM/50 ML BAG IV SCH (23:17)
[2019-02-07] MEDS: MORPHINE IV PRN ×3 (00:30→07:58)
[2019-02-07 00:58] LABS: Hematocrit 31.2 % (30.3-42.9); Hemoglobin 10.4 gm/dl (10.1-14.3); Mean Corpuscular HGB Conc 33 % (30-34); Mean Corpuscular Volume 74 fl (79-97); Red Blood Count 4.19 M/mm3 (3.65-5.03); Red Cell Distribution Width 18.2 % (13.2-15.2)
[2019-02-07 01:00] LABS: Platelet Count 62 K/mm3 (140-440)
[2019-02-07 01:14] LABS: Alanine Aminotransferase 57 units/L (7-56)
[2019-02-07] MEDS: MAGNESIUM SULFATE 40GM/1000ML 40 GM/1,000 ML BAG IV SCH (04:54)
[2019-02-07] MEDS ORDERED: PERCOCET 5/325 PO PRN (05:00)
[2019-02-07] MEDS ORDERED: BOOSTRIX IM ONE (06:00)
[2019-02-07] MEDS: ANCEF/NS 1 GM/50 ML 1 GM/50 ML BAG IV SCH (06:30)
[2019-02-07 07:37] LABS: Hematocrit 28.3 % (30.3-42.9); Hemoglobin 9.4 gm/dl (10.1-14.3)
--- NOTE | 2019-02-07 09:19 | Progress Note ---
Assessment and Plan POD 1 s/p c/s Patient resting in bed, reports feeling well, denies any concerns or complaints. She denies any ANGEL, visual disturbances, RUQ/epigastric pain, difficulty breathing, SOB, or chest pain. Magnesium currently infusing at 2 gm per hr. Scheduled to discontinue 24 hrs post delivery, mag level just drawn, will monitor for results. Rn performing FSBS at this time (fasting-pt confirms nothing to eat or drink since OK), per Dr. Ellison, if WNL will d/c accuchecks. Fundus is firm, ML, U/1. Vaginal bleeding is small, patient denies any heavy bleeding or large clots. She reports pain is well controlled with medications given. Dressing remains in place over abdominal incision, C/D/I, RN to remove this morning. DWP recent labs, to be redrawn at 1300. VSSAF. Pt encouraged pt to continue IS frequently. Patient voices request to begin pumping EBM for infant. Suggested direct feeding with to breast, skin to skin contact vs pumping. Arrangements made with manager clinic for to remain in room with pt. Will continue current POC. Subjective - Subjective Date of service: 02/07/19 Principal diagnosis: POD1 s/p c/s for severe PreE;GDM;Asthma Patient reports: appetite normal, voiding normally (blood catheter in place, draining dark yellow urine), pain well controlled, no flatus : other (well nursery. Pt desires in room. Discussed with Luke who states she will arange for infant to stay in mothers room for bonding, skin to skin, and nursing. ) Objective - Vital Signs Latest vital signs: Vital Signs Temp Pulse Pulse Resp Resp BP BP 02/07/19 09:15 107 H 162/106 02/07/19 09:04 18 02/07/19 09:00 96 H 126/70 02/07/19 08:45 99 H 138/70 02/07/19 08:30 94 H 127/67 02/07/19 08:15 97 H 122/66 02/07/19 08:13 95 H 02/07/19 08:08 94 H 02/07/19 08:03 102 H 02/07/19 08:00 93 H 146/80 02/07/19 07:58 18 08/22/19 07:45 96 H 143/86 08/22/19 07:30 98 H 126/82 02/07/19 07:28 99.5 F 98 H 18 126/82 02/07/19 07:20 88 18 02/07/19 07:15 85 136/61 02/07/19 07:12 102 H 02/07/19 07:10 91 H 02/07/19 07:05 85 02/07/19 07:04 68 02/07/19 07:00 96 H 121/58 02/07/19 06:55 97 H 02/07/19 06:50 96 H 02/07/19 06:45 98 H 128/55 02/07/19 06:40 96 H 02/07/19 06:35 93 H 02/07/19 06:30 98 H 129/62 02/07/19 06:00 17 02/07/19 05:00 16 02/07/19 04:00 18 02/07/19 03:00 19 02/07/19 02:00 18 02/07/19 01:00 18 02/07/19 00:34 98.6 F 88 138/85 02/07/19 00:00 98.4 F 18 02/06/19 23:00 16 02/06/19 22:55 94 H 16 145/84 02/06/19 22:30 98.8 F 92 H 18 144/89 02/06/19 22:02 92 H 168/88 02/06/19 19:15 86 22 137/88 02/06/19 19:00 76 20 138/83 02/06/19 18:55 78 21 141/87 02/06/19 18:50 83 22 152/85 02/06/19 18:45 97.8 F 88 23 147/78 02/06/19 17:01 103 H 02/06/19 16:59 101 H 02/06/19 16:55 104 H 02/06/19 16:54 103 H 02/06/19 16:49 106 H 02/06/19 16:38 114 H 02/06/19 16:34 117 H 02/06/19 16:33 105 H 02/06/19 16:28 106 H 02/06/19 16:23 104 H 02/06/19 16:04 114 H 02/06/19 16:01 114 H 144/78 02/06/19 16:00 97.2 F L 02/06/19 15:59 115 H 02/06/19 15:55 108 H 02/06/19 15:54 108 H 02/06/19 15:49 116 H 02/06/19 15:44 114 H 02/06/19 15:39 108 H 02/06/19 15:34 107 H 02/06/19 15:32 107 H 139/87 02/06/19 15:30 107 H 02/06/19 15:29 113 H 02/06/19 15:24 105 H 02/06/19 15:19 107 H 02/06/19 15:14 107 H 02/06/19 15:09 110 H 02/06/19 15:08 110 H 02/06/19 15:04 111 H 02/06/19 15:02 109 H 131/68 02/06/19 14:59 108 H 02/06/19 14:57 109 H 02/06/19 14:54 110 H 02/06/19 14:49 114 H 02/06/19 14:44 108 H 02/06/19 14:43 105 H 02/06/19 14:39 106 H 02/06/19 14:38 104 H 02/06/19 14:34 109 H 02/06/19 14:32 105 H 02/06/19 14:31 110 H 136/71 02/06/19 14:29 105 H 02/06/19 14:26 105 H 02/06/19 14:24 108 H 02/06/19 14:21 106 H 02/06/19 14:19 112 H 02/06/19 14:14 109 H 02/06/19 14:11 105 H 02/06/19 14:09 105 H 02/06/19 14:05 107 H 02/06/19 14:04 107 H 02/06/19 14:02 107 H 137/75 02/06/19 14:00 106 H 02/06/19 13:59 105 H 02/06/19 13:55 107 H 02/06/19 13:54 106 H 02/06/19 13:49 106 H 02/06/19 13:44 103 H 02/06/19 13:39 103 H 116 H 15 08/21/19 13:35 103 H 02/06/19 13:34 100 H 02/06/19 13:32 104 H 142/75 02/06/19 13:29 104 H 02/06/19 13:24 107 H 02/06/19 13:19 107 H 02/06/19 13:14 104 H 02/06/19 13:09 107 H 02/06/19 13:04 106 H 02/06/19 13:02 108 H 130/77 02/06/19 13:00 98.1 F 02/06/19 12:59 109 H 02/06/19 12:54 112 H 02/06/19 12:49 105 H 02/06/19 12:44 105 H 02/06/19 12:39 111 H 02/06/19 12:37 107 H 02/06/19 12:34 104 H 02/06/19 12:32 112 H 122/72 02/06/19 12:29 101 H 02/06/19 12:26 106 H 02/06/19 12:24 105 H 02/06/19 12:19 114 H 02/06/19 12:14 106 H 02/06/19 12:09 108 H 02/06/19 12:04 107 H 02/06/19 12:01 109 H 143/77 02/06/19 12:00 109 H 02/06/19 11:59 105 H 02/06/19 11:54 107 H 02/06/19 11:49 109 H 02/06/19 11:44 108 H 02/06/19 11:42 112 H 02/06/19 11:39 110 H 02/06/19 11:34 109 H 02/06/19 11:29 111 H 02/06/19 11:24 117 H 02/06/19 11:21 106 H 02/06/19 11:19 109 H 02/06/19 11:14 112 H 02/06/19 11:12 108 H 02/06/19 11:09 109 H 02/06/19 11:06 106 H 02/06/19 11:04 110 H 02/06/19 11:01 110 H 137/81 02/06/19 11:00 98.1 F 109 H 02/06/19 10:59 108 H 02/06/19 10:54 111 H 02/06/19 10:52 111 H 02/06/19 10:49 110 H 02/06/19 10:46 113 H 02/06/19 10:44 111 H 02/06/19 10:39 110 H 02/06/19 10:34 113 H 02/06/19 10:33 105 H 141/72 02/06/19 10:30 109 H 02/06/19 10:29 111 H 02/06/19 10:24 110 H 02/06/19 10:19 110 H 02/06/19 10:14 115 H 02/06/19 10:09 114 H 02/06/19 10:04 116 H 02/06/19 10:02 112 H 142/80 02/06/19 10:01 114 H 142/80 02/06/19 09:59 112 H 02/06/19 09:54 114 H 02/06/19 09:49 116 H 02/06/19 09:44 119 H 02/06/19 09:41 128 H 02/06/19 09:39 105 H 02/06/19 09:34 114 H 02/06/19 09:32 116 H 142/82 02/06/19 09:29 117 H 02/06/19 09:24 117 H 02/06/19 09:19 119 H 02/06/19 09:18 115 H 124/73 Pulse Ox 02/07/19 09:15 02/07/19 09:04 02/07/19 09:00 02/07/19 08:45 02/07/19 08:30 02/07/19 08:15 02/07/19 08:13 93 02/07/19 08:08 92 02/07/19 08:03 96 02/07/19 08:00 02/07/19 07:58 02/07/19 07:45 02/07/19 07:30 02/07/19 07:28 02/07/19 07:20 89 02/07/19 07:15 91 02/07/19 07:12 89 02/07/19 07:10 55 L 02/07/19 07:05 94 02/07/19 07:04 87 02/07/19 07:00 96 02/07/19 06:55 93 02/07/19 06:50 96 02/07/19 06:45 95 02/07/19 06:40 95 08/22/19 06:35 96 02/07/19 06:30 95 02/07/19 06:00 02/07/19 05:00 02/07/19 04:00 02/07/19 03:00 02/07/19 02:00 02/07/19 01:00 02/07/19 00:34 02/07/19 00:00 02/06/19 23:00 02/06/19 22:55 94 02/06/19 22:30 96 02/06/19 22:02 02/06/19 19:15 100 02/06/19 19:00 100 02/06/19 18:55 99 02/06/19 18:50 99 02/06/19 18:45 99 02/06/19 17:01 94 02/06/19 16:59 96 02/06/19 16:55 94 02/06/19 16:54 94 02/06/19 16:49 95 02/06/19 16:38 95 02/06/19 16:34 93 02/06/19 16:33 96 02/06/19 16:28 97 02/06/19 16:23 96 02/06/19 16:04 94 02/06/19 16:01 02/06/19 16:00 02/06/19 15:59 94 02/06/19 15:55 94 02/06/19 15:54 95 02/06/19 15:49 94 02/06/19 15:44 94 02/06/19 15:39 90 02/06/19 15:34 93 02/06/19 15:32 02/06/19 15:30 94 02/06/19 15:29 96 02/06/19 15:24 93 02/06/19 15:19 93 02/06/19 15:14 95 02/06/19 15:09 94 02/06/19 15:08 93 02/06/19 15:04 95 02/06/19 15:02 94 02/06/19 14:59 94 02/06/19 14:57 91 02/06/19 14:54 92 02/06/19 14:49 93 02/06/19 14:44 95 02/06/19 14:43 93 02/06/19 14:39 92 02/06/19 14:38 94 02/06/19 14:34 95 02/06/19 14:32 94 02/06/19 14:31 02/06/19 14:29 94 02/06/19 14:26 94 02/06/19 14:24 95 02/06/19 14:21 94 02/06/19 14:19 96 02/06/19 14:14 94 02/06/19 14:11 94 02/06/19 14:09 94 02/06/19 14:05 94 02/06/19 14:04 95 02/06/19 14:02 02/06/19 14:00 94 02/06/19 13:59 95 02/06/19 13:55 94 02/06/19 13:54 95 02/06/19 13:49 96 02/06/19 13:44 98 02/06/19 13:39 98 02/06/19 13:35 93 02/06/19 13:34 96 02/06/19 13:32 02/06/19 13:29 96 02/06/19 13:24 96 02/06/19 13:19 97 02/06/19 13:14 97 02/06/19 13:09 97 02/06/19 13:04 97 02/06/19 13:02 02/06/19 13:00 02/06/19 12:59 97 02/06/19 12:54 96 02/06/19 12:49 97 02/06/19 12:44 95 02/06/19 12:39 94 02/06/19 12:37 94 02/06/19 12:34 96 02/06/19 12:32 02/06/19 12:29 94 02/06/19 12:26 94 02/06/19 12:24 96 02/06/19 12:19 96 02/06/19 12:14 96 02/06/19 12:09 97 02/06/19 12:04 96 02/06/19 12:01 02/06/19 12:00 92 02/06/19 11:59 96 02/06/19 11:54 96 02/06/19 11:49 96 02/06/19 11:44 96 02/06/19 11:42 94 02/06/19 11:39 96 02/06/19 11:34 96 02/06/19 11:29 96 02/06/19 11:24 97 02/06/19 11:21 93 02/06/19 11:19 95 02/06/19 11:14 94 02/06/19 11:12 93 02/06/19 11:09 95 02/06/19 11:06 94 02/06/19 11:04 96 02/06/19 11:01 02/06/19 11:00 94 02/06/19 10:59 96 02/06/19 10:54 95 02/06/19 10:52 93 02/06/19 10:49 95 02/06/19 10:46 94 02/06/19 10:44 95 02/06/19 10:39 95 02/06/19 10:34 96 02/06/19 10:33 02/06/19 10:30 94 02/06/19 10:29 96 02/06/19 10:24 95 02/06/19 10:19 96 02/06/19 10:14 97 02/06/19 10:09 97 02/06/19 10:04 97 02/06/19 10:02 02/06/19 10:01 02/06/19 09:59 97 02/06/19 09:54 97 02/06/19 09:49 97 02/06/19 09:44 96 02/06/19 09:41 94 02/06/19 09:39 97 02/06/19 09:34 96 02/06/19 09:32 02/06/19 09:29 96 02/06/19 09:24 95 02/06/19 09:19 96 02/06/19 09:18 Intake and Output 02/06/19 02/07/19 02/07/19 23:59 07:59 15:59 Intake Total 1330.833 482.5 Output Total 900 1500 125 Balance 430.833 -1017.5 -125 Intake: IV 1330.833 482.5 ANCEF/NS 1 GM/50 ML 1 gm 50 In 50 ml @ 100 mls/hr IV Q8H DANAE Rx#:[id number] MAGNESIUM SULFATE 40GM/ 280.833 482.5 1000ML 40 gm In 1,000 ml @ 2 GM/HR 50 mls/hr IV DIRECT DANAE Rx#:[id number] Output: Urine 900 1500 125 Indwelling Catheter 800 1500 125 Other: Total, Output Amount 200 100 125 Estimated Blood Loss 800 - Exam Cardiovascular: Present: Regular rate, Normal S1, Normal S2 Lungs: Present: Clear to auscultation, Normal air movement Abdomen: Present: normal appearance, soft, tenderness (mild, with fundal pressure), normal bowel sounds Vulva: both: normal Uterus: Present: normal, firm, fundal height below umbilicus Extremities: Present: normal Deep Tendon Reflex Grade: Normal +2 Incision: Present: dressed (C/D/I, to be removed by RN this morning) - Labs Labs: Abnormal lab results 02/06/19 02/06/19 02/06/19 Range/Units 13:03 13:03 19:47 WBC 12.2 H (4.5-11.0) K/mm3 Hgb (10.1-14.3) gm/dl Hct (30.3-42.9) % MCV 75 L (79-97) fl MCH 25 L (28-32) pg RDW 17.7 H (13.2-15.2) % Plt Count 70 L (140-440) K/mm3 Creatinine 0.5 L (0.7-1.2) mg/dL Magnesium 3.10 H 3.80 H (1.7-2.3) mg/dL AST 85 H (5-40) units/L ALT (7-56) units/L Lactate Dehydrogenase 458 H (91-180) units/L Crossmatch 02/06/19 02/07/19 02/07/19 Range/Units Unknown 00:34 00:34 WBC 13.8 H (4.5-11.0) K/mm3 Hgb (10.1-14.3) gm/dl Hct (30.3-42.9) % MCV 74 L (79-97) fl MCH 25 L (28-32) pg RDW 18.2 H (13.2-15.2) % Plt Count 62 L (140-440) K/mm3 Creatinine 0.6 L (0.7-1.2) mg/dL Magnesium 4.70 H (1.7-2.3) mg/dL AST 98 H (5-40) units/L ALT 57 H (7-56) units/L Lactate Dehydrogenase 773 H (91-180) units/L Crossmatch See Detail 02/07/19 02/07/19 Range/Units 07:23 07:23 WBC (4.5-11.0) K/mm3 Hgb 9.4 L (10.1-14.3) gm/dl Hct 28.3 L (30.3-42.9) % MCV (79-97) fl MCH (28-32) pg RDW (13.2-15.2) % Plt Count (140-440) K/mm3 Creatinine (0.7-1.2) mg/dL Magnesium 4.60 H (1.7-2.3) mg/dL AST (5-40) units/L ALT (7-56) units/L Lactate Dehydrogenase (91-180) units/L Crossmatch
[2019-02-07] MEDS: NORMODYNE PO SCH ×2 (10:54→23:57)
[2019-02-07 14:04] LABS: Alanine Aminotransferase 50 units/L (7-56)
[2019-02-07 17:39] LABS: Hematocrit 26.4 % (30.3-42.9); Mean Corpuscular HGB Conc 34 % (30-34); Mean Corpuscular Volume 74 fl (79-97); Red Blood Count 3.56 M/mm3 (3.65-5.03); Red Cell Distribution Width 18.2 % (13.2-15.2)
[2019-02-07 17:42] LABS: Platelet Count 63 K/mm3 (140-440)
[2019-02-07] MEDS ORDERED: TUCKS PAD TP PRN (23:19)
[2019-02-07] MEDS ORDERED: NARCAN 0.4 MG/1 ML IV PRN (23:19)
[2019-02-07] MEDS ORDERED: NORCO 5/325 PO PRN (23:19)
[2019-02-07] MEDS ORDERED: LANSINOH TP PRN (23:19)
[2019-02-07] MEDS ORDERED: PROVENTIL IH PRN (23:42)
[2019-02-07] MEDS ORDERED: SODIUM CHLORIDE FLUSH SYRINGE 10 ML IV NR (23:45)
[2019-02-07] MEDS ORDERED: PITOCin/NS 20 UNIT/1000ML DRIP 20 UNITS/1,000 ML BAG IV SCH (23:45)
[2019-02-07] MEDS: IBUPROFEN PO PRN (23:58)
[2019-02-08 06:32] LABS: Hematocrit 26.3 % (30.3-42.9); Hemoglobin 8.6 gm/dl (10.1-14.3); Mean Corpuscular HGB Conc 33 % (30-34); Mean Corpuscular Volume 75 fl (79-97); Red Blood Count 3.49 M/mm3 (3.65-5.03); Red Cell Distribution Width 18.2 % (13.2-15.2)
[2019-02-08 06:36] LABS: Platelet Count 79 K/mm3 (140-440)
[2019-02-08 06:53] LABS: Alanine Aminotransferase 35 units/L (7-56); Uric Acid 7.5 mg/dL (3.5-7.6)
--- NOTE | 2019-02-08 08:25 | Progress Note ---
Assessment and Plan Pt resting in bed. Denies dizziness, lightheadedness, or blurry vision. Lochia scant. Afebrile. BP 130-140/60-80. Dressing c/d/i. - Patient Problems (1) delivery delivered Current Visit: Yes Status: Acute Plan to address problem: Continue PP pathway. RN to remove dressing after shower. Advance diet/activity as tolerated. 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 Monitor for s/s of worsen condition. Subjective - Subjective Date of service: 02/08/19 Principal diagnosis: POD2 s/p c/s for severe PreE;GDM;Asthma Patient reports: appetite normal, voiding normally, pain well controlled, ambulating normally : doing well Objective - Vital Signs Latest vital signs: Vital Signs Temp Pulse Resp BP Pulse Ox 02/08/19 05:07 98.2 F 94 H 20 131/66 98 02/07/19 23:57 94 H 147/86 02/07/19 21:44 99.5 F 18 142/87 02/07/19 20:45 90 144/75 02/07/19 20:30 88 136/73 02/07/19 20:15 91 H 143/74 02/07/19 20:04 96 H 141/71 02/07/19 20:00 99 H 142/74 02/07/19 19:45 100 H 140/71 02/07/19 19:30 97 H 145/70 02/07/19 19:15 101 H 147/79 02/07/19 19:00 97 H 140/70 02/07/19 18:58 93 H 128/72 02/07/19 18:30 99 H 120/57 02/07/19 18:23 94 H 96 02/07/19 18:18 105 H 98 02/07/19 18:16 101 H 119/67 02/07/19 18:13 102 H 97 02/07/19 18:08 98 H 98 02/07/19 18:03 99 H 98 02/07/19 18:00 96 H 118/58 02/07/19 17:58 97 H 98 02/07/19 17:53 97 H 98 02/07/19 17:48 92 H 96 02/07/19 17:45 97 H 127/59 88 02/07/19 17:43 94 H 100 02/07/19 17:38 92 H 100 02/07/19 17:33 95 H 100 02/07/19 17:30 95 H 128/68 02/07/19 17:28 97 H 99 02/07/19 17:23 95 H 98 02/07/19 17:18 98 H 100 02/07/19 17:15 91 H 119/57 02/07/19 17:13 94 H 99 02/07/19 17:08 94 H 98 02/07/19 17:03 89 98 02/07/19 17:00 90 121/59 02/07/19 16:58 91 H 96 02/07/19 16:53 90 92 02/07/19 16:45 88 117/57 02/07/19 16:30 90 125/60 02/07/19 16:15 89 120/59 02/07/19 16:00 99 H 123/65 02/07/19 15:45 84 121/57 02/07/19 15:30 90 125/59 02/07/19 15:15 94 H 135/62 02/07/19 15:00 96 H 127/61 02/07/19 14:45 91 H 126/57 02/07/19 14:15 90 122/58 02/07/19 14:00 94 H 120/58 02/07/19 13:45 93 H 124/59 02/07/19 13:30 96 H 142/71 02/07/19 13:00 100 H 125/71 02/07/19 12:45 97 H 126/78 02/07/19 12:30 100 H 130/65 02/07/19 12:15 95 H 142/67 02/07/19 12:00 91 H 134/63 02/07/19 11:45 97 H 143/67 02/07/19 11:30 96 H 131/64 02/07/19 11:15 100 H 142/75 02/07/19 11:00 101 H 142/68 02/07/19 10:54 98 H 130/65 02/07/19 10:45 98 H 130/65 02/07/19 10:30 95 H 137/68 02/07/19 10:15 98 H 132/70 02/07/19 10:00 98 H 127/66 02/07/19 09:45 101 H 130/70 02/07/19 09:30 100 H 120/63 02/07/19 09:15 107 H 162/106 02/07/19 09:04 18 02/07/19 09:00 96 H 126/70 02/07/19 08:45 99 H 138/70 02/07/19 08:30 94 H 127/67 Intake and Output 02/07/19 02/08/19 02/08/19 23:59 07:59 15:59 Intake Total 671.667 240 Output Total 1000 Balance 671667 760 Intake: IV 671.667 MAGNESIUM SULFATE 40GM/ 671.667 1000ML 40 gm In 1,000 ml @ 2 GM/HR 50 mls/hr IV DIRECT DANAE Rx#:[id number] Oral 240 Output: Urine 1000 Void 1000 Other: Total, Intake Amount 240 Total, Output Amount 400 - Exam Breasts: Present: normal Lungs: Present: Normal air movement Abdomen: Present: normal appearance, soft Vulva: both: normal Uterus: Present: normal, firm, fundal height at umbilicus Extremities: Present: normal Deep Tendon Reflex Grade: Normal +2 Incision: Present: normal, dry, dressed - Labs Labs: Abnormal lab results 02/06/19 02/07/19 02/07/19 Range/Units Unknown 13:10 16:56 WBC 13.5 H (4.5-11.0) K/mm3 RBC 3.56 L (3.65-5.03) M/mm3 Hgb 9.0 L (10.1-14.3) gm/dl Hct 26.4 L (30.3-42.9) % MCV 74 L (79-97) fl MCH 25 L (28-32) pg RDW 18.2 H (13.2-15.2) % Plt Count 63 L (140-440) K/mm3 Creatinine 0.6 L (0.7-1.2) mg/dL Magnesium 5.10 H (1.7-2.3) mg/dL AST 65 H (5-40) units/L Lactate Dehydrogenase 602 H (91-180) units/L Crossmatch See Detail 02/08/19 02/08/19 Range/Units 05:50 05:50 WBC 12.6 H (4.5-11.0) K/mm3 RBC 3.49 L (3.65-5.03) M/mm3 Hgb 8.6 L (10.1-14.3) gm/dl Hct 26.3 L (30.3-42.9) % MCV 75 L (79-97) fl MCH 25 L (28-32) pg RDW 18.2 H (13.2-15.2) % Plt Count 79 L (140-440) K/mm3 Creatinine 0.6 L (0.7-1.2) mg/dL Magnesium (1.7-2.3) mg/dL AST (5-40) units/L Lactate Dehydrogenase 399 H (91-180) units/L Crossmatch
[2019-02-08] MEDS: PRENATAL VITAMIN PO SCH (09:45)
[2019-02-08] MEDS: NORMODYNE PO SCH ×2 (09:45→21:38)
[2019-02-08] MEDS: FEOSOL PO SCH (09:45)
[2019-02-08] MEDS: IBUPROFEN PO PRN ×2 (09:55→23:01)
[2019-02-08] MEDS ORDERED: MILK OF MAGNESIA PO PRN (20:24)
[2019-02-08] MEDS: MYLICON PO PRN (21:37)
--- NOTE | 2019-02-09 08:08 | Discharge Summary ---
Providers - Providers Date of Admission: 02/06/19 00:56 Date of discharge: 02/09/19 (pt req d/c today if possible) Attending physician: QUINN DIOP 02/07/19 23:19 Consult to Media/Instructional Designer [CONS] Routine Reason For Exam: Primary care physician: QUINN DIOP Hospitalization Reason for admission: other (PreE) Delivery: Procedure: primary low transverse (worsening PreE remote from delivery) Episiotomy: none Laceration: none Incision: normal, dry, intact Other procedures: none complications: none Discharge diagnosis: delivery baby: male Condition at discharge: Good Disposition: DC-01 TO HOME OR SELFCARE - Discharge Diagnoses (1) Yeast infection of the vagina Status: Acute Comment: RX Macrobid (2) Pre-eclampsia in third trimester Status: Acute Comment: RX Labetalol 200mg po BID BP check 02-12-19 @ 0945 (3) delivery delivered Status: Acute Comment: Post-op appt 02-12-19@0945 Plan - Discharge Medications Prescriptions: Lidocain2.5%/Prilocai2.5% [Emla] 5 gm TP ONCE #1 tube Labetalol [Labetalol 200mg TAB] 200 mg PO BID #60 tablet Ibuprofen [Motrin 800 MG tab] 800 mg PO TID PRN #30 tablet PRN Reason: Pain oxyCODONE /ACETAMINOPHEN [Percocet 5/325 mg] 1 - 2 tab PO Q4HR PRN #20 tablet PRN Reason: Pain - Provider Discharge Summary Activity: routine, no sex for 6 weeks, no heavy lifting 4 weeks, no strenuous exercise Diet: other (no salt; increase po hydration) Instructions: routine Additional instructions: [] Smoking cessation referral if applicable(refer to patient education folder for contact #) [] Refer to [facility]'s [facility] Booklet Call your doctor immediately for: * Fever > 100.5 * Heavy vaginal bleeding ( >1 pad per hour) * Severe persistent headache * Shortness of breath * Reddened, hot, painful area to leg or breast * Drainage or odor from incision. * Keep incision clean and dry at all times and follow doctor's instructions regarding bathing/showering - Follow up plan Follow up: QUINN DIOP MD [Primary Care Provider] - 02/12/19 9:45 am (Congratulations! Please call for your son's circumcision [phone]. Bring the EMLA cream with you to his visit. Do NOT use at home. Your appointment in Monday02-12-19 @ 7960 in the [place] office. Call with any headache, blurred vision, chest pain. Take medications as prescribed. Call with any concerns.)
[2019-02-09] MEDS: NORMODYNE PO SCH (10:00)
[2019-02-09] MEDS: PRENATAL VITAMIN PO SCH (10:00)
[2019-02-09] MEDS: FEOSOL PO SCH (10:00)
[2019-02-09] MEDS: MYLICON PO PRN (11:42)
[2019-02-09] MEDS: IBUPROFEN PO PRN (11:42)
[2019-02-09 12:41] VITALS: BP 137/80
== END 2019-02-09 15:05 | disposition home or self-care (01) | DRG 765 ==
LOC: TRG 22:53 → OBSVTOIN 02-06 00:56 → LD 02-06 00:56 → OB 02-07 21:37
PROVIDERS: ADMIT Obstetrics & Gynecology; ATTEND Obstetrics & Gynecology
PROC: 10D00Z1 Extraction of Products of Conception, Low, Open Approach (ICD-10-PCS; principal; 2019-02-06)
DX: O14.24 HELLP syndrome, complicating childbirth (principal); J45.21 Mild intermittent asthma with (acute) exacerbation; O98.82 Other maternal infectious and parasitic diseases complicating childbirth; O99.12 Other diseases of the blood and blood-forming organs and certain disorders involving the immune mechanism complicating childbirth; Z37.0 Single live birth; O99.52 Diseases of the respiratory system complicating childbirth; O24.420 Gestational diabetes mellitus in childbirth, diet controlled; D69.6 Thrombocytopenia, unspecified; Z3A.37 37 weeks gestation of pregnancy
CPT/HCPCS: 36415; 76815; 80053; 81001; 82565; 82962; 83615; 83735; 84450; 84460; 84550; 85014; 85018; 85025; 85027; 85610; 85730; 86592; 86850; 86900; 86901; 86920; 88307; 94640; G0378; C1765; C9250; J0330; J0360; J0690; J1170; J1200; J2250; J2270; J2370; J2405; J2590; J2704; J2765; J3010; J3475; J3490; J7120

== ENCOUNTER 2020-10-18 14:12 | Outpatient (CLI) | payer OTHER ==
[2020-10-18 14:48] VITALS: BP 129/65
[2020-10-18] MEDS ORDERED: LACTATED RINGERS 500 ML IV ONE (15:18)
--- NOTE | 2020-10-18 16:58 | Vascular Lab Report ---
VL venous duplex LE BILAT INDICATION / CLINICAL INFORMATION: HISTORY OF PE. COMPARISON: None available. FINDINGS: No evidence of deep vein thrombosis in either leg. Signer Name: Eusebio Dominguez MD Signed: 10/18/2020 4:53 PM Workstation Name: [id number]
[2020-10-18 17:03] LABS: Hematocrit 34.9 % (30.3-42.9); Hemoglobin 11.5 gm/dl (10.1-14.3); Mean Corpuscular HGB Conc 33 % (30-34); Mean Corpuscular Volume 75 fl (79-97); Platelet Count 218 K/mm3 (140-440); Red Blood Count 4.68 M/mm3 (3.65-5.03); Red Cell Distribution Width 15.4 % (13.2-15.2)
[2020-10-18 17:24] LABS: Alanine Aminotransferase 10 units/L (7-56)
== END 2020-10-18 17:51 | disposition home or self-care (01) ==
LOC: TRG 14:12 → APU 14:13 → TRG 17:51
PROVIDERS: ATTEND Obstetrics & Gynecology
DX: Z34.92 Encounter for supervision of normal pregnancy, unspecified, second trimester (principal); Z3A.20 20 weeks gestation of pregnancy; I83.813 Varicose veins of bilateral lower extremities with pain; M79.672 Pain in left foot; M79.671 Pain in right foot
CPT/HCPCS: 36415; 59025; 82565; 83615; 84450; 84460; 84550; 85027; 93970